=== PATIENT | female | born 1990 | race Caucasian/White ===

== ENCOUNTER 2016-04-02 06:34 | Emergency (ER) | payer MEDICAID ==
[2010-02-14 06:44] VITALS: BMI 29.7
[2016-04-02 07:16] LABS: BASOPHILS 0.3 % (0.0-2.0); EOSINOPHILS 1.3 % (0-7); HEMATOCRIT 41.4 % (36.0-48.0); HEMOGLOBIN 13.6 g/dL (12-16); IMMATURE GRANULOCYTES 0.3 % (0-5); LYMPHOCYTES 18.2 % (15-50); MCH 28.7 pg (26.0-34.0); MCHC 32.9 g/dL (31.0-37.0); MCV 87.3 fL (80.0-100.0); MEAN PLATELET VOLUME 10.6 fL (7.4-10.4); MONOCYTES 6.9 % (2-11); RBC 4.74 10x6/uL (4.00-5.40); RDW 13.3 % (11.5-14.5); WBC 11.1 10x3/uL (4.8-10.8)
[2016-04-02 07:27] LABS: PLATELET COUNT 267 10x3/uL (130-400)
[2016-04-02 07:28] LABS: HCG SERUM POSITIVE (NEGATIVE)
== END 2016-04-02 18:16 | disposition home or self-care (01) ==
LOC: D.ER 06:34
PROVIDERS: Family Medicine
DX: O20.9 Hemorrhage in early pregnancy, unspecified (principal); Z3A.01 Less than 8 weeks gestation of pregnancy; F17.200 Nicotine dependence, unspecified, uncomplicated

== ENCOUNTER 2016-04-23 10:49 | Emergency (ER) | payer MEDICAID ==
[2010-02-14 06:44] VITALS: BMI 29.7
[2016-04-23 12:14] LABS: BASOPHILS 0.2 % (0.0-2.0); EOSINOPHILS 0.7 % (0-7); HEMATOCRIT 36.3 % (36.0-48.0); IMMATURE GRANULOCYTES 0.3 % (0-5); LYMPHOCYTES 18.8 % (15-50); MCH 28.8 pg (26.0-34.0); MCHC 33.1 g/dL (31.0-37.0); MCV 87.1 fL (80.0-100.0); MEAN PLATELET VOLUME 10.5 fL (7.4-10.4); MONOCYTES 4.5 % (2-11); NEUTROPHILS 75.5 % (40-80); RBC 4.17 10x6/uL (4.00-5.40); WBC 11.5 10x3/uL (4.8-10.8)
[2016-04-23 12:27] LABS: PLATELET COUNT 191 10x3/uL (130-400)
[2016-04-23 12:44] LABS: ALBUMIN 3.7 g/dL (3.4-5.0); ALKALINE PHOSPHATASE 59 U/L (46-116); ALT (SGPT) 17 U/L (10-68); BILIRUBIN - TOTAL 0.19 mg/dL (0.2-1.3); CALC OSMOLALITY 275 mosm/kg (275-300); CALCIUM 8.9 mg/dL (8.5-10.1); CARBON DIOXIDE 26.2 mmol/L (21.0-32.0); CHLORIDE - SERUM 103 mmol/L (98-107); CREATININE - SERUM 0.5 mg/dL (0.6-1.3); GLUCOSE 90 mg/dL (74-106); POTASSIUM - SERUM 3.7 mmol/L (3.5-5.1); PROTEIN - SERUM 7.2 g/dL (6.4-8.2); SODIUM 139 mmol/L (136-145); UREA NITROGEN 7 mg/dL (7-18); eGFR NON AFRICAN AMERICAN > 90 mL/min (90-120)
[2016-04-23 12:45] LABS: HCG SERUM POSITIVE (NEGATIVE)
[2016-04-23 13:42] LABS: APPEARANCE HAZY (CLEAR); COLOR STRAW (YELLOW); GLUCOSE NEGATIVE (NEGATIVE); LEUKOCYTE ESTERASE 2+ (NEGATIVE); NITRITE NEGATIVE (NEGATIVE); PROTEIN NEGATIVE (NEGATIVE); SPECIFIC GRAVITY 1.005 (1.005-1.020)
[2016-04-23 13:43] LABS: BILIRUBIN NEGATIVE (NEGATIVE); KETONE NEGATIVE (NEGATIVE); UROBILINOGEN NORMAL (NORMAL)
[2016-04-23 13:44] LABS: AMORPHOUS SEDIMENT >1+ /lpf (NONE SEEN); BACTERIA FEW /hpf (NONE SEEN); EPITHELIAL CELLS 0-5 /hpf (0-5); RED CELLS - URINE 0-5 /hpf (0-5); WHITE CELLS - URINE 0-5 /hpf (0-5)
[2016-05-03 14:27] LABS: AEROBE ID Final report (())
== END 2016-04-23 16:09 | disposition home or self-care (01) ==
LOC: D.ER 10:49
PROVIDERS: Emergency Medicine Emergency Medical Services; Physician Assistant
DX: O26.891 Other specified pregnancy related conditions, first trimester (principal); Z3A.11 11 weeks gestation of pregnancy; R10.9 Unspecified abdominal pain; R30.0 Dysuria

== ENCOUNTER → 2016-09-25 10:24 | Outpatient (CLI) | payer MEDICAID ==
[2010-02-14 06:44] VITALS: BMI 29.7
== END | disposition home or self-care (01) ==
LOC: D.LDO 10:24
DX: O36.5930 Maternal care for other known or suspected poor fetal growth, third trimester, not applicable or unspecified (principal); Z3A.33 33 weeks gestation of pregnancy

== ENCOUNTER → 2016-09-28 09:16 | Outpatient (CLI) | payer MEDICAID ==
[2010-02-14 06:44] VITALS: BMI 29.7
== END | disposition home or self-care (01) ==
LOC: D.LDO 09:16
DX: O36.5930 Maternal care for other known or suspected poor fetal growth, third trimester, not applicable or unspecified (principal); Z3A.33 33 weeks gestation of pregnancy

== ENCOUNTER 2016-09-29 21:39 | Emergency (ER) | payer MEDICAID ==
[2010-02-14 06:44] VITALS: BMI 29.7
[2016-09-29 22:21] LABS: APPEARANCE CLEAR (CLEAR); BILIRUBIN NEGATIVE (NEGATIVE); COLOR YELLOW (YELLOW); GLUCOSE NEGATIVE (NEGATIVE); KETONE NEGATIVE (NEGATIVE); LEUKOCYTE ESTERASE 2+ (NEGATIVE); NITRITE NEGATIVE (NEGATIVE); PROTEIN NEGATIVE (NEGATIVE); UROBILINOGEN NORMAL (NORMAL)
[2016-09-29 22:28] LABS: BACTERIA FEW /hpf (NONE SEEN); EPITHELIAL CELLS 0-5 /hpf (0-5); RED CELLS - URINE OCC /hpf (0-5)
== END 2016-09-29 23:26 | disposition home or self-care (01) ==
LOC: D.ER 21:39
PROVIDERS: Emergency Medicine
DX: N39.0 Urinary tract infection, site not specified (principal)

== ENCOUNTER → 2016-10-01 10:32 | Outpatient (CLI) | payer MEDICAID ==
[2010-02-14 06:44] VITALS: BMI 29.7
== END | disposition home or self-care (01) ==
LOC: D.LDO 10:32
DX: O36.5930 Maternal care for other known or suspected poor fetal growth, third trimester, not applicable or unspecified (principal); Z3A.34 34 weeks gestation of pregnancy

== ENCOUNTER → 2016-10-08 10:00 | Outpatient (CLI) | payer MEDICAID ==
[2010-02-14 06:44] VITALS: BMI 29.7
== END | disposition home or self-care (01) ==
LOC: D.LDO 10:00
DX: O36.5930 Maternal care for other known or suspected poor fetal growth, third trimester, not applicable or unspecified (principal); Z3A.35 35 weeks gestation of pregnancy

== ENCOUNTER → 2016-10-18 09:20 | Outpatient (CLI) | payer MEDICAID ==
[2010-02-14 06:44] VITALS: BMI 29.7
== END | disposition home or self-care (01) ==
LOC: D.LDO 09:20
DX: O36.5930 Maternal care for other known or suspected poor fetal growth, third trimester, not applicable or unspecified (principal); Z3A.36 36 weeks gestation of pregnancy

== ENCOUNTER → 2016-10-23 08:50 | Outpatient (CLI) | payer MEDICAID ==
[2010-02-14 06:44] VITALS: BMI 29.7
== END | disposition home or self-care (01) ==
LOC: D.LDO 08:50
DX: O36.5930 Maternal care for other known or suspected poor fetal growth, third trimester, not applicable or unspecified (principal)

== ENCOUNTER → 2016-10-30 13:37 | Outpatient (CLI) | payer MEDICAID ==
[2010-02-14 06:44] VITALS: BMI 29.7
== END | disposition home or self-care (01) ==
LOC: D.LDO 13:37
DX: O36.5930 Maternal care for other known or suspected poor fetal growth, third trimester, not applicable or unspecified (principal); Z3A.38 38 weeks gestation of pregnancy

== ENCOUNTER 2016-11-05 05:00 | Inpatient (IN) | payer MEDICAID ==
[~2016-11-05] VITALS: Ht 162.6 cm; Wt 71.7 kg
[2016-11-05 05:47] VITALS: BP 120/74; Ht 162.6 cm; Wt 71.7 kg
[2016-11-05 06:06] LABS: HEMATOCRIT 33.1 % (36.0-48.0); HEMOGLOBIN 10.8 g/dL (12-16); MCH 28.3 pg (26.0-34.0); MCHC 32.6 g/dL (31.0-37.0); MCV 86.9 fL (80.0-100.0); MEAN PLATELET VOLUME 11.5 fL (7.4-10.4); RBC 3.81 10x6/uL (4.00-5.40); RDW 13.6 % (11.5-14.5); WBC 8.7 10x3/uL (4.8-10.8)
[2016-11-05 08:27] LABS: UDS - AMPHET NEGATIVE QUAL (NEGATIVE); UDS - BARB NEGATIVE QUAL (NEGATIVE); UDS - BENZO NEGATIVE QUAL (NEGATIVE); UDS - COCAINE NEGATIVE QUAL (NEGATIVE); UDS - METH NEGATIVE QUAL (NEGATIVE); UDS - OPIATE NEGATIVE QUAL (NEGATIVE); UDS - PCP NEGATIVE QUAL (NEGATIVE); UDS - THC NEGATIVE QUAL (NEGATIVE)
[2016-11-05 08:32] LABS: APPEARANCE CLOUDY (CLEAR); BACTERIA MODERATE /hpf (NONE SEEN); BILIRUBIN NEGATIVE (NEGATIVE); COLOR STRAW (YELLOW); EPITHELIAL CELLS 0-5 /hpf (0-5); GLUCOSE NEGATIVE (NEGATIVE); KETONE NEGATIVE (NEGATIVE); LEUKOCYTE ESTERASE 2+ (NEGATIVE); NITRITE NEGATIVE (NEGATIVE); PROTEIN NEGATIVE (NEGATIVE); RED CELLS - URINE 0-5 /hpf (0-5); UROBILINOGEN NORMAL (NORMAL); WHITE CELLS - URINE 25-50 /hpf (0-5)
[2016-11-05 08:33] LABS: MUCUS <1+ /lpf (NONE SEEN)
[2016-11-05 19:20] VITALS: BP 114/71
--- NOTE | 2016-11-05 19:24 | NUR ---
RN TO PT BS FOR JAXSON. PT RESTING IN BED IN SEMI-FOWLERS POSITION, HOLDING INFANT, IN NO ACUTE DISTRESS. PT IS A 26YO G3 NOW P3 WITH OF VIABLE FEMALE INFANT TODAY @ 1121. @ 39.3 WKS GESTATION WITH SUSPECTED IUGR. DELIVERY COMPLICATED BY SUPERFICIAL LACERATION AND NO REPAIR. AAOX3. HR REGULAR. LUNGS CTAB. ABDOMEN SOFT AND NON TENDER. BS ACTIVE TIMES 4. FUNDUS FIRM AND ML @ U. LOCHIA RUBRA SMALL. PERINIUM APPEARS TO BE INTACT. ALEKSEY PAD AND PANTIES IN PLACE. PT DENIES DIFFICULTY VOIDING. STATES SHE HAS PASSED GAS BUT HAS NOT HAD A BM SINCE . PT TOLERATING REGULAR DIET. NO SWELLING NOTED TO UPPER OR LOWER EXTREMITIES BILATERALLY. 18G SL IN PLACE TO RIGHT FA, FLUSHED WITH 5CC NS WITHOUT DIFFICULTY. NO REDNESS, EDEMA, OR DRAINAGE NOTED TO SITE. PT C/O PAIN, RATES 7/10, REQUESTS MEDICATION. 1 TAB IBUPROFEN AND 1 TAB DEMEROL 50MG PO PROVIDED AT THIS TIME. PT DENIES ANY FURTHER NEEDS AT THIS TIME. POC DISCUSSED WITH PT AND SO. QUESTIONS ANSWERED. INFANT REMAINS AT PT BS FOR COUPLET CARE. SO REMAINS AT PT BS FOR SUPPORT AND ASSISTANCE. WILL CONT TO MONITOR PT STATUS.
--- NOTE | 2016-11-05 20:13 | NUR ---
RN TO PT BS FOR ROUNDS. PT AMBULATING IN ROOM TO BR AT THIS TIME TO SHOWER. PT STATES HER PAIN HAS DECREASED TO 2/10 AFTER MEDICATION. PT DENIES ANY NEEDS AT THIS TIME. BED IN LOW POSITION, SIDE RAILS UP TIMES 2, CALL LIGHT AND PHONE IN REACH. SO REMAINS AT PT BS FOR SUPPORT AND ASSISTANCE. REMAINS AT PT BS FOR COUPLET CARE. WILL CONT TO MONITOR PT STATUS.
--- NOTE | 2016-11-05 20:54 | NUR ---
RN TO PT BS TO PROVIDE 2100 DOSE OF MOM. PT SITTING ON SIDE OF BED IN NO ACUTE DISTRESS. MOM PROVIDED. PT DENIES ANY FURTHER NEEDS. BED IN LOW POSITION, SIDE RAILS UP TIMES 2, CALL LIGHT AND PHONE IN REACH. SO REMAINS AT PT BS FOR SUPPORT AND ASSISTANCE. REMAINS AT PT BS FOR COUPLET CARE. WILL CONT TO MONITOR STATUS.
--- NOTE | 2016-11-05 22:31 | NUR ---
RN TO PT BS FOR ROUNDS. PT RESTING IN BED IN SEMI-FOWLERS POSITION IN NO ACUTE DISTRESS. PT DENIES ANY NEEDS AT THIS TIME. BED IN LOW POSITION, SIDE RAILS UP TIMES 2, CALL LIGHT AND PHONE IN REACH. SO REMAINS AT PT BS FOR SUPPORT AND ASSISTANCE. REMAINS AT PT BS FOR COUPLET CARE. WILL CONT TO MONITOR PT STATUS.
--- NOTE | 2016-11-05 23:34 | NUR ---
RN TO PT BS FOR ROUNDS. PT RESTING IN BED IN SEMI-FOWLERS POSITION INFANT. PT DENIES ANY NEEDS AT THIS TIME. BED IN LOW POSITION, SIDE RAILS UP TIMES 2, CALL LIGHT AND PHONE IN REACH. INFANT REMAINS AT PT BS FOR SUPPORT AND ASSISTANCE. REMAINS AT PT BS FOR COUPLET CARE. WILL CONT TO MONITOR PT STATUS.
--- NOTE | 2016-11-06 00:30 | NUR ---
RN CALLED TO PT BS. PT C/O PAIN, RATES 10/11, REQUESTS MEDICATION. DEMEROL 100MG PROVIDED PO AT THIS TIME. PT DENIES ANY FURTHER NEEDS AT THIS TIME. SO REMAINS AT PT BS FOR SUPPORT AND ASSISTANCE. INFANT TRANSPORTED TO NURSERY VIA OPEN CRIB PER PT REQUEST TO SLEEP. BED IN LOW POSITION, SIDE RAILS UP TIMES 2, CALL LIGHT AND PHONE IN REACH. WILL CONT TO MONITOR PT STATUS.
--- NOTE | 2016-11-06 02:20 | NUR ---
RN TO PT BS FOR ROUNDS. PT RESTING IN BED IN SEMI-FOWLERS POSITION, WITH EYES CLOSED, IN NO ACUTE DISTRESS. RESPIRATIONS EVEN AND UNLABORED. BED IN LOW POSITION, SIDE RAILS UP TIMES 2, CALL LIGHT AND PHONE IN REACH. SO REMAINS AT PT BS FOR SUPPORT AND ASSISTANCE. WILL CONT TO MONITOR PT STATUS.
--- NOTE | 2016-11-06 03:27 | NUR ---
RN TO PT BS FOR ROUNDS. PT RESTING IN BED IN RIGHT LATERAL POSITION, WITH EYES CLOSED, IN NO ACUTE DISTRESS. RESPIRATIONS EVEN AND UNLABORED. BED IN LOW POSITION, SIDE RAILS UP TIMES 2, CALL LIGHT AND PHONE IN REACH. SO REMAINS AT PT BS FOR SUPPORT AND ASSISTANCE. WILL CONT TO MONITOR PT STATUS.
[2016-11-06 05:29] LABS: HEMATOCRIT 29.6 % (36.0-48.0); HEMOGLOBIN 9.7 g/dL (12-16); MCH 28.9 pg (26.0-34.0); MCHC 32.8 g/dL (31.0-37.0); MCV 88.1 fL (80.0-100.0); MEAN PLATELET VOLUME 11.3 fL (7.4-10.4); RBC 3.36 10x6/uL (4.00-5.40); RDW 13.5 % (11.5-14.5); WBC 7.7 10x3/uL (4.8-10.8)
--- NOTE | 2016-11-06 05:47 | NUR ---
RN TO PT BS FOR ROUNDS. PT RESTING IN BED IN SEMI-FOWLERS POSITION, WITH EYES CLOSED, IN NO ACUTE DISTRESS. RESPIRATIONS EVEN AND UNLABORED. SO REMAINS AT PT BS FOR SUPPORT AND ASSISTANCE. BED IN LOW POSITION, SIDE RAILS UP TIMES 2, CALL LIGHT AND PHONE IN REACH. WILL CONT TO MONITOR PT STATUS.
--- NOTE | 2016-11-06 08:27 | NUR ---
Diana Montiel 11/[birth year]/16 S: Client states, "She breastfed her other kids for one month, by pumping the milk and giving a bottle. States baby just doesn't latch, just for a minute." O: Patient sitting up in bed talking with FOB who is sitting on sofa. Congratulated on delivery, asked patient how does she feel about . Patient states, "Its ok, I want to pump and give the baby the milk in a bottle, I rather not latch, I'm uncomfortable with latching". Thanked patient for being honest about how she feels about . You don't have to latch baby if you prefer not to, and we respect your decision on how you would like to feed your baby. does require stimulation to help with your body to start establishing your supply for infant. Explained breastmilk composition and how to hand express. Supply and demand what is taken out, your body will make more of. Recommend any amount she gets with hand expression to give to . Patient verbally agrees and says, "That's a good idea. "Observed patient constantly pulling blanket up over her breast, like she is uncomfortable, and rubbing her arms. Asked if she would like help with pump? Patient states, "She will try when she gets home, she is going to try and get a pump, does get [place], it's been 4 years, but she thinks they give out pumps". Offered to make patient a [place] appointment, patient states," She lives in [facility] and will call at a later time to do so. Asked if patient had any questions or concerns, all declined. Will follow up. A: Patient states she prefers to pump when she gets home, not comfortable with latching . P: Continue to promote . Wade Lopez, CLC
[2016-11-06 08:30] VITALS: BP 97/62
--- NOTE | 2016-11-06 08:30 | NUR ---
AM assessment completed as charted on flowsheet, VSS. Pain med given per request for pain/cramping in abd. Saline lock to right forearm removed with cath intact. Fundus firm at u/u, per pt no clots with voids and bleeding is very little. Margaret pads and mesh panties placed in bathroom along with towels for her to shower. Pt states understanding to call nurse when she gets into shower so that bed linens can be changed. spouse at bedside, side rails up x 2 with call light in reach.
--- NOTE | 2016-11-06 10:45 | NUR ---
Pt sitting on couch with in crib at her side. Denies pain or discomfort and has no needs at this time.
--- NOTE | 2016-11-06 12:48 | NUR ---
Pt sitting up eating regular diet, in crib at bedside. Denies pain or discomfort at this time and voices no needs.
--- NOTE | 2016-11-06 14:30 | NUR ---
Pt calls out to let nurses know that she is getting into the shower, this rn to room with bed linens changed. Sig other in room with in crib.
--- NOTE | 2016-11-06 16:08 | NUR ---
Pain med given per request as charted on emar. pt amb to nursery than walks in halls with spouse.
--- NOTE | 2016-11-06 17:30 | NUR ---
Denies pain or discomfort and has no needs at this time.
--- NOTE | 2016-11-06 19:12 | NUR ---
report to 7p-7p
--- NOTE | 2016-11-06 19:34 | NUR ---
RN TO PT BS FOR ROUNDS. PT AMBULATING IN SANCHEZ IN NO ACUTE DISTRESS. PT DENIES ANY NEEDS AT THIS TIME. WILL RETURN FOR JAXSON. SO WITH PT AT THIS TIME FOR SUPPORT AND ASSISTANCE. WILL CONT TO MONITOR PT STATUS.
[2016-11-06 20:30] VITALS: BP 106/73
--- NOTE | 2016-11-06 20:30 | NUR ---
RN TO PT BS FOR JAXSON. PT AMBULATING IN ROOM, IN NO ACUTE DISTRESS. PT RETURNS TO BED FOR JAXSON. PT IS A 26YO G3 NOW P3 WITH OF VIABLE FEMALE INFANT YESTERDAY @ 1121. @ 39.3 WKS GESTATION WITH SUSPECTED IUGR. DELIVERY COMPLICATED BY SUPERFICIAL LACERATION AND NO REPAIR. AAOX3. HR REGULAR. LUNGS CTAB. ABDOMEN SOFT AND NON TENDER. BS ACTIVE TIMES 4. FUNDUS NOT PALPATED. LOCHIA RUBRA SCANT. PERINIUM APPEARS TO BE INTACT. ALEKSEY PAD AND PANTIES IN PLACE. PT DENIES DIFFICULTY VOIDING. STATES SHE IS PASSING GAS AND HAS HAD A BM SINCE . PT TOLERATING REGULAR DIET. NO SWELLING NOTED TO UPPER OR LOWER EXTREMITIES BILATERALLY. NO IV ACCESS. PT C/O PAIN, RATES 4/10. DENIES THE NEED FOR MEDICATION AT THIS TIME. PT DENIES ANY FURTHER NEEDS AT THIS TIME. BED IN LOW POSITION, SIDE RAILS UP TIMES 2, CALL LIGHT AND PHONE IN REACH. SO REMAINS AT PT BS FOR SUPPORT AND ASSISTANCE. REMAINS AT PT BS FOR COUPLET CARE. WILL CONT TO MONITOR PT STATUS.
--- NOTE | 2016-11-06 22:27 | NUR ---
RN TO PT BS FOR ROUNDS. PT RESTING IN BED IN SEMI-FOWLERS POSITION, HOLDING , IN NO ACUTE DISTRESS. PT C/O PAIN, RATES 8/10, REQUESTS MEDICATION. 1 TAB IBUPROFEN AND 100MG DEMEROL PROVIDED AT THIS TIME. PT DENIES ANY FURTHER NEEDS. BED IN LOW POSITION, SIDE RAILS UP TIMES 2, CALL LIGHT AND PHONE IN REACH. SO REMAINS AT PT BS FOR SUPPORT AND ASSISTANCE. INFANT REMAINS AT PT BS FOR COUPLET CARE. WILL CONT TO MONITOR PT STATUS.
--- NOTE | 2016-11-07 00:19 | NUR ---
RN TO PT BS FOR ROUNDS. PT RESTING IN BED IN SEMI-FOWLERS POSITION, IN NO ACUTE DISTRESS. PT DENIES ANY NEEDS AT THIS TIME. BED IN LOW POSITION, SIDE RAILS UP TIMES 2, CALL LIGHT AND PHONE IN REACH. SO REMAINS AT PT BS FOR SUPPORT AND ASSISTANCE. WILL CONT TO MONITOR PT STATUS.
--- NOTE | 2016-11-07 04:25 | NUR ---
RN TO PT BS FOR ROUNDS. PT RESTING IN BED IN RIGHT LATERAL POSITION, WITH EYES CLOSED, IN NO ACUTE DISTRESS. RESPIRATIONS EVEN AND UNLABORED. SO REMAINS AT PT BS FOR SUPPORT AND ASSISTANCE. BED IN LOW POSITION, SIDE RAILS UP TIMES 2, CALL LIGHT AND PHONE IN REACH. WILL CONT TO MONITOR PT STATUS.
[2016-11-07 06:14] LABS: RAPID PLASMA REAGIN Non Reactive (Non Reactive)
[2016-11-07 07:20] VITALS: BP 98/65
--- NOTE | 2016-11-07 07:20 | NUR ---
RECEIVED PT SITTING UP IN BED. AAO X 3. VSS. HRRR WITHOUT AUDIBLE MURMUR. BBS CLEAR. BS X 4. ABDOMEN SOFT/NON-DISTENDED. PT STATES PASSING GAS AND HAD BM YESTERDAY. FUNDUS FIRM AT U/U. RUBRA LOCHIA SMALL AMT. NO CLOTS OR HEAVY BLEEDING PER PT STATES. PERINEUM WITHOUT EDEMA. NEG HOMANS' SIGN. PPP. NO EDEMA NOTED TO BLE. PT STATES PAIN OF "4" ON 0-10 PAIN SCALE. DENIES NEED FOR PAIN MED AT THIS TIME. SR UP X 2. CALL LIGHT IN REACH.
--- NOTE | 2016-11-07 08:26 | NUR ---
DR MICHAELS VISITS WITH PT.
--- NOTE | 2016-11-07 09:30 | NUR ---
PT SITTING UP ON COUCH. HOLDS INFANT WITH MUCH WARMTH SHOWN. DENIES C/O. DECLINES TDAP.
--- NOTE | 2016-11-07 10:04 | NUR ---
DR MICHAELS NOTIFIED OF NO ORDER FOR DISCHARGE. NEW ORDERS RECEIVED.
[2016-11-07] MEDS ORDERED: IBUPROFEN600 MG PO (10:13)
--- NOTE | 2016-11-07 11:30 | NUR ---
PT SITTING UP ON COUCH. HOLDS INFANT AND VISITS WITH SO. DENIES NEEDS OR C/O.
--- NOTE | 2016-11-07 12:40 | NUR ---
PT PREPARING FOR DISCHARGE.
--- NOTE | 2016-11-07 12:52 | NUR ---
DEMEROL 50 MG GIVEN PO ORDERED FOR C/O ABDOMINAL CRAMPING OF "6" ON 0-10 PAIN SCALE.
--- NOTE | 2016-11-07 13:00 | NUR ---
PT GIVEN DISCHARGE INSTRUCTIONS. VERBALIZES UNDERSTANDING OF INSTRUCTIONS. COPIES GIVEN TO PT. RX FOR IBUPROFEN GIVEN TO PT. PT PREPARES FOR DISCHARGE.
--- NOTE | 2016-11-07 13:30 | NUR ---
PT READY FOR DISCHARGE. DISCHARGED WITH VIA WHEELCHAIR PER AUXILIARY STAFF TO PRIVATE VEHICLE.
== END 2016-11-07 13:30 | disposition home or self-care (01) | DRG 774 ==
LOC: D.LD 05:00
PROVIDERS: ADMIT Obstetrics & Gynecology
PROC: 10E0XZZ Delivery of Products of Conception, External Approach (ICD-10-PCS; principal; 2016-11-05)
PROC: 0HQ9XZZ Repair Perineum Skin, External Approach (ICD-10-PCS; principal; 2016-11-05)
DX: O99.824 Streptococcus B carrier state complicating childbirth (principal); O45.93 Premature separation of placenta, unspecified, third trimester; O70.0 First degree perineal laceration during delivery; Z3A.39 39 weeks gestation of pregnancy; Z37.0 Single live birth

== ENCOUNTER 2019-05-09 18:43 | Inpatient (IN) | payer MEDICAID ==
[~2019-05-09] VITALS: Ht 162.6 cm; Wt 81.6 kg
[~2019-05-09 18:43] MED LIST: IBUPROFEN600 MG PO
[2019-05-09 20:04] LABS: HEMATOCRIT 31.5 % (36.0-48.0); HEMOGLOBIN 10.2 g/dL (12-16); MCHC 32.4 g/dL (31.0-37.0); MCV 83.3 fL (80.0-100.0); MEAN PLATELET VOLUME 12.7 fL (7.4-10.4); RBC 3.78 10x6/uL (4.00-5.40); WBC 8.9 10x3/uL (4.8-10.8)
[2019-05-09 20:08] LABS: BILIRUBIN NEGATIVE (NEGATIVE); GLUCOSE NEGATIVE (NEGATIVE); KETONE NEGATIVE (NEGATIVE); NITRITE NEGATIVE (NEGATIVE); SPECIFIC GRAVITY 1.005 (1.005-1.020); UROBILINOGEN NORMAL (NORMAL)
[2019-05-09 20:22] LABS: UDS - AMPHET POSITIVE QUAL (NEGATIVE); UDS - BARB NEGATIVE QUAL (NEGATIVE); UDS - BENZO NEGATIVE QUAL (NEGATIVE); UDS - COCAINE NEGATIVE QUAL (NEGATIVE); UDS - OPIATE NEGATIVE QUAL (NEGATIVE); UDS - PCP NEGATIVE QUAL (NEGATIVE); UDS - THC NEGATIVE QUAL (NEGATIVE)
[2019-05-09] MEDS ORDERED: PRENAVITE1 TAB PO (21:30)
[2019-05-09 21:31] VITALS: BP 104/60; Ht 162.6 cm; Wt 81.6 kg
[2019-05-09] MEDS ORDERED: FLAGYL500 MG PO (21:52)
[2019-05-10] VITALS (14 sets, daily range): BP systolic 106–131; BP diastolic 59–81
[2019-05-10 06:36] LABS: BASOPHILS 0.2 % (0-2); EOSINOPHILS 0.4 % (0-7); HEMATOCRIT 27.9 % (36.0-48.0); HEMOGLOBIN 8.8 g/dL (12-16); IMMATURE GRANULOCYTES 0.2 % (0-5); MCH 26.6 pg (26.0-34.0); MCHC 31.5 g/dL (31.0-37.0); MCV 84.3 fL (80.0-100.0); MEAN PLATELET VOLUME 12.1 fL (7.4-10.4); MONOCYTES 6.6 % (2-11); NEUTROPHILS 73.6 % (40-80); PLATELET COUNT 183 10x3/uL (130-400); RBC 3.31 10x6/uL (4.00-5.40); RDW 14.1 % (11.5-14.5); WBC 9.1 10x3/uL (4.8-10.8)
--- NOTE | 2019-05-10 07:30 | NUR ---
SHIFT ASSESSMENT COMPLETED. DENIES PAIN OR NEEDING ANYTHING. READY FOR BREAKFAST. SNACKBOX AND FRESH WATER GIVEN. INSTRUCTED TO GET OOB FREQUENTLY AND TO LET RN KNOW WHEN READY TO SHOWER THIS AM. DISCUSSED POLICY TO REMAIN ON CABRAL DURING ADMISSION. DECLINED NICODERM PATCH. IN NURSERY. VISITOR SLEEPING ON COUCH. SIDERAILS UP X 2, CALL GERI DIAZ.
--- NOTE | 2019-05-10 09:08 | NUR ---
SCHEDULED TYLENOL GIVEN SOME CRAMPING AND LOW BACK PAIN. HAS BEEN UP TO VOID. VOIDED 300 ML YELLOW URINE WITH SCANT LOCHIA NOTED IN [place] HAT. VISITOR IN ROOM. NO REQUESTS AT PRESENT. SIDE RAILS UP X 2, CALL LIGHT IN REACH. TO CALL IF ANYTHING IS NEEDED.
--- NOTE | 2019-05-10 09:40 | NUR ---
SITTING UP IN BED HOLDING . ORDERED FLAGYL GIVEN. TEARFUL AFTER TALKING TO SOMEONE ON PHONE. APPLE JUICE, ICE AND FRESH WATER GIVEN PER PT REQUEST. DENIES NEEDING ANYTHING ELSE. VISITOR X 1 IN ROOM. SIDERAILS UP X 2, CALL LIGHT IN REACH.
--- NOTE | 2019-05-10 10:28 | NUR ---
CALLED TO ROOM BY PT'S MOTHER. PT C/O BLEEDING. BLOOD NOTED ON CHUX, BEDPAD AND SHEETS, UTERINE MASSAGED AND LARGE BLOOT CLOTS X 2 EXPRESSED FROM VAGINA, NOTED CONTINUED BLEEDING WITH CLOT NOTED AT INTROITUS, FUNDAL MASSAGE GIVEN AND CALLED FOR HELP FROM SECOND RN.
--- NOTE | 2019-05-10 10:30 | NUR ---
SECOND RN IN ROOM ASSISTING WITH PATIENT, BIMANUAL EXAM OF VAGINAL DONE USING STERILE GLOVE WITH EVACUATION OF LARGE CLOTS, UTERUS REMAINED U/2 FIRM DURING EXAM. CLEAN CHUX, PADS, GOWN AND LINENS TO BED. CONTINUED TO WATCH FOR BLEEDING.
--- NOTE | 2019-05-10 10:36 | NUR ---
THIS RN ON PHONE WITH DR CUETO AT PT BEDSIDE, REPORT GIVEN ON HEAVY LOCHIA AND CLOTS EXPRESSED WITH FUNDAL MASSAGE BY JONG CHRISTENSEN. ORDER RECEIVED TO ADMIN 0.2MG METHERGINE IM NOW, 1G TXA IVPB NOW, AND START PT ON 200MCG CYTOTEC PO Q8H.
--- NOTE | 2019-05-10 10:36 | NUR ---
BLEEDING CONTINUED WITH EXPRESSION OF CLOTS, Jeanette RODRIGUEZ RN CONTACTED DR CUETO WHILE IN ROOM. ORDERS WERE RECEIVED FOR METHERGINE.
--- NOTE | 2019-05-10 10:43 | NUR ---
METHERGINE GIVEN IM BY Jeanette RODRIGUEZ RN.
--- NOTE | 2019-05-10 10:43 | NUR ---
METHERGINE ADMIN ORDERED TO LEFT VASTUS LATERALIS, SEE EMAR FOR DOC.
--- NOTE | 2019-05-10 10:47 | NUR ---
TXA 1000 MG HUNG ON ALARIS PUMP TO RUN OVER 30 MINS. CLEAN PADS AND CHUX PLACED. CONTINUED TO WATCH BLEEDING.
--- NOTE | 2019-05-10 10:56 | NUR ---
CYTOTECH 200 MG GIVEN PO. D. MICHAEL ON PHONE WITH MD NOTIFYING ON CONTINUED BLEEDING WITH CLOTS.
--- NOTE | 2019-05-10 10:56 | NUR ---
DR CUETO GIVEN UPDATED REPORT ON BLEEDING AND REQUESTS HE COME EVALUATE PT. ORDER RECEIVED TO ADMIN 250MCG HEMABATE IM x1 NOW AND HE IS ON HIS WAY.
--- NOTE | 2019-05-10 11:02 | NUR ---
HEMABATE ADMIN ORDERED BY DR CUETO TO RIGHT VASTUS LATERALIS. PT EDUCATED ON SIDE EFFECTS.
--- NOTE | 2019-05-10 11:10 | NUR ---
HEMABATE GIVEN IM BY Jeanette RODRIGUEZ RN AT 1102 AFTER RECEIVING ORDERS FROM . LAB WAS NOTIFIED OF NEED FOR TYPE AND CROSS. NS HUNG AND STARTED AT 999 ML/HR PER ALARIS PUMP.
--- NOTE | 2019-05-10 11:14 | NUR ---
DR CUETO PHONED TO GIVE REPORT ON ANOTHER LARGE AMOUNT OF CLOTS EXPRESSED WITH FUNDAL MASSAGE BY AMPARO, RN. ORDER RECEIVED TO PREOP PT FOR DILATION AND CURETTAGE, AND NOTIFY INFANT ROOM TEACHER TO CALL O.R. CREW IN FOR STAT CASE.
--- NOTE | 2019-05-10 11:15 | NUR ---
CONSENT FOR D&C OBTAINED FROM PATIENT.
--- NOTE | 2019-05-10 11:15 | NUR ---
[employer] NOTIFIED OF NEED FOR O.R. CREW CALLED IN FOR STAT D AND C PER DR CUETO, STATES HE IS IN ROUTE AND WILL BE IN HOSPITAL WITHIN 1 MIN.
--- NOTE | 2019-05-10 11:20 | NUR ---
LABS DRAWN ORDERED FROM LEFT FOREARM, LAB NOTIFIED OF STAT PICKUP.
--- NOTE | 2019-05-10 11:35 | NUR ---
DEMEROL 25 MG/PHENERGAN 25 MG GIVEN SLOW IVP. BICITRA AND LOMOTIL ALSO GIVEN AT THIS TIME. CHANGED PADS, CHUX, GOWN, LARGE CLOT ON PAD NOTED, NO CURRENT ACTIVE BLEEDING, U/2 FIRM. ALL MATERIAL KEPT FOR WEIGHING/QUANTIFICATION.
--- NOTE | 2019-05-10 11:40 | NUR ---
18G PIV INITIATED TO LEFT FOREARM x2 ATTEMPTS BY THIS RN. SALINE LOCKED FOR O.R.
[2019-05-10 11:45] LABS: HEMATOCRIT 26.8 % (36.0-48.0); HEMOGLOBIN 8.4 g/dL (12-16); MCH 26.3 pg (26.0-34.0); MCHC 31.3 g/dL (31.0-37.0); MEAN PLATELET VOLUME 12.3 fL (7.4-10.4); PLATELET COUNT 201 10x3/uL (130-400); RBC 3.19 10x6/uL (4.00-5.40); RDW 14.1 % (11.5-14.5); WBC 8.7 10x3/uL (4.8-10.8)
--- NOTE | 2019-05-10 11:53 | NUR ---
TO OR VIA BED WITH OR STAFF.
--- NOTE | 2019-05-10 11:53 | NUR ---
VIELKA CHAND CRNA IN ROOM TALKING TO PATIENT PRIOR TO TRANSFER TO OR. NOTIFIED OF MEDICATIONS THAT HAD BEEN ADMINISTERED. INFORMED THAT IM DEMEROL WAS ORDERED BUT HAD NOT BEEN GIVEN YET. ORDERS RECEIVED TO HOLD PT WAS GOING TO OR AT THIS TIME.
[2019-05-10 12:13] LABS: APTT 25.7 SECONDS (22.8-39.4); INR 0.91 (0.85-1.17); PROTIME 12.2 SECONDS (11.6-15.0)
--- NOTE | 2019-05-10 12:30 | NUR ---
EBL BY WEIGHT 1225 CC.
[2019-05-10 12:35] LABS: EOSINOPHILS 2 % (0-7); LYMPHOCYTES 23 % (15-50); MONOCYTES 6 % (2-11); NEUTROPHILS 68 % (40-80); PLATELET ESTIMATE NORMAL
--- NOTE | 2019-05-10 12:43 | NUR ---
Jeanette TINAJERO RN ON PHONE WITH DR CUETO, GIVING LAB RESULTS ON COAGS.
--- NOTE | 2019-05-10 12:51 | NUR ---
DR CUETO ON UNIT, LAB ORDERS RECEIVED.
[2019-05-10 13:03] LABS: CALC OSMOLALITY 265 mosm/kg (275-300); CALCIUM 8.2 mg/dL (8.5-10.1); CARBON DIOXIDE 24.1 mmol/L (21.0-32.0); CHLORIDE - SERUM 103 mmol/L (98-107); CREATININE - SERUM 0.6 mg/dL (0.6-1.3); GLUCOSE 101 mg/dL (74-106); POTASSIUM - SERUM 3.8 mmol/L (3.5-5.1); SODIUM 134 mmol/L (136-145); UREA NITROGEN 8 mg/dL (7-18); eGFR NON AFRICAN AMERICAN > 90 mL/min (90-120)
[2019-05-10 13:09] LABS: ALBUMIN 1.9 g/dL (3.4-5.0); ALKALINE PHOSPHATASE 200 U/L (30-120); ALT (SGPT) 16 U/L (10-68); BILIRUBIN - DIRECT 0.09 mg/dL (0.00-0.30); BILIRUBIN - INDIRECT 0.11 mg/dL (0.00-1.00); PROTEIN - SERUM 5.4 g/dL (6.4-8.2); URIC ACID 3.4 mg/dL (2.6-7.2)
--- NOTE | 2019-05-10 13:19 | NUR ---
RECEIVED FROM OR VIA BED WITH FORGING PRESS LEVER TENDER IN ATTENDANCE. DROWSY BUT WAKES UP WHEN NAME IS CALLED. VS OBTAINED. NS AND TXA 1 GRAM IVPB PLACED ON ALARIS PUMP AT 12.5 ML/HR. INFUSING WITHOUT SIGNS OF INFILTRATION IN RIGHT WRIST. SCD'S IN PLACE BILATERALL AND PUMP WORKING CORRECTLY. CASILLAS DRAINING CLEAR URINE WITH 900 ML IN BAG. SALINE LOCK NOTED IN LEFT FA. ALEKSEY-PADS X 2 PLACED, NO VAGINAL BLEEDING NOTED. SIDE RAILS UP X 2, CALL LIGHT IN REACH. PT MOTHER AT BEDSIDE. INFANT IN NURSERY. CALL LIGHT IN REACH. DR CUETO TALKED TO PT MOTHER PRIOR TO PT RETURNING TO ROOM FROM OR.
--- NOTE | 2019-05-10 13:30 | NUR ---
TALKED TO DR CUETO ON PHONE. RESULTS OF D-DIMER GIVEN. ORDERS RECEIVED FOR FIBRIN SPLIT PRODUCTS AND FIBRINOGEN. NOTIFIED THAT PT WITHOUT CURRENT VAGINAL BLEEDING.
--- NOTE | 2019-05-10 13:40 | NUR ---
SLEEPING, AROUSED EASILY FOR BLEEDING CHECK. NO BLOOD NOTED ON ALEKSEY-PAD. CASILLAS DRAINING CLEAR YELLOW URINE. VISITOR AND INFANT IN ROOM. SIDERAILS UP X 2, CALL LIGHT IN REACH, PT TO REMAIN NPO EXCEPTS SIPS OF WATER FOR MEDS NEEDED. BED IN LOW POSITION.
--- NOTE | 2019-05-10 14:15 | NUR ---
SLEEPING, AROUSED EASILY FOR BLEEDING CHECK. SMALL AMOUNT OF BLOOD NOTED BACK OF ALESKEY-PAD, WEIGHT = 26 ML BLOOD. VISITOR AND INFANT REMAIN IN ROOM. CASILLAS DRAINING WITHOUT DIFFICULTY. ASSISTED TO REPOSITION TO LEFT SIDE. CLEAN ALEKSEY-PAD PLACED. CALL LIGHT IN REACH.
--- NOTE | 2019-05-10 15:09 | NUR ---
DR CUETO CALLED CABRAL, NOTIFIED THAT ONE ALEKSEY-PAD. NO NEW ORDERS AT PRESENT- TO CONTINUE TO WATCH BLEEDING, VS, AND URINE OUTPUT.
--- NOTE | 2019-05-10 16:00 | NUR ---
SLEEPING, AROUSED EASILY FOR BLEEDING CHECK, NO BLOOD NOTED ON ALEKSEY-PAD. NO CURRENT REQUESTS. SAID SHE WAS HUNGRY, EXPLAINED SHE IS NPO FOR NOW. WENT BACK TO SLEEP. VISITOR IN ROOM. INFANT IN VISITOR ARMS. SIDERAILS UP X 2, CALL LIGHT IN REACH.
--- NOTE | 2019-05-10 16:54 | NUR ---
POSITIONED TO RIGHT SIDE WITH MINIMAL ASSISTANCE. DEEP BREATHED AND COUGHED BEFORE TURNING. DENIES PAIN/CRAMPING STATES "I'VE BEEN SLEEPING". CASILLAS DRAINING CLEAR YELLOW URINE, NO VAGINAL BLEEDING NOTED. INFANT IN CRIB, VISITOR IN ROOM, SIDERAILS UP X 2, CALL LIGHT IN REACH. TO CALL IF ANYTHING IS NEEDED. NO SIGNS OF INFILTRATION AT IV SITE.
--- NOTE | 2019-05-10 17:02 | MORECARE ---
CASE MANAGEMENT DISCHARGE SUMMARY PATIENT: SHANTELL STEWARD UNIT: [id number] ADM DATE: 05/09/19 AGE: 29 : 89 SEX: F ROOM/BED: D.1278 AUTHOR: ANNA MARSHALL PHYSICIAN: REFERRING PHYSICIAN: GIANNA CUETO MD DATE OF SERVICE: 05/10/19 Discharge Plan Patient Name: SHANTELL STEWARD Facility: [facility]:[place] : 1990 Planned Disposition: Anticipated Discharge Date: Discharge Date: Expected LOS: Initial Reviewer: [email or web address] Initial Review Date: 05/09/2019 Generated: 05/10/19 6:01 pm Patient Name: SHANTELL STEWARD Page [id number] at 1702 All edits/amendments must be made on the electronic document DICTATION DATE: 05/10/191700 SUMMER INTERN: SCOOTER 05/10/191700 RPT#: [id number] DC DATE: STATUS: ADM IN [facility] [address] [place] [address] END OF REPORT
--- NOTE | 2019-05-10 17:53 | NUR ---
AWAKE, ALERT AND ORIENTED. C/O 8/10 ABDOMINAL CRAMPING. TYLENOL #3 2 TABS GIVEN PO FOR RELIEF. 2/U FIRM DEVIATED TO LEFT. PT CURRENTLY WITH UTERINE PACKING. SCANT LOCHIA ON ALEKSEY-PADS X 2, WEIGHT BLOOD LOSS 10 CC. CASILLAS DRAINING CLEAR YELLOW URINE. SIPS OF WATER TAKEN WITH MEDICATION AND TWO ICE CHIPS GIVEN. MOUTH MOISTURIZER ALSO GIVEN. INSTRUCTED PT THAT MD WILL BE CALLING AFTER 1900 AND MAY CHANGE POC. CURRENT IS CONTINUE NPO, CASILLAS, PAIN MANAGEMENT, BLEEDING ASSESSMENT AND ANTIBIOTICS. VISITOR REMAINS IN ROOM WITH IN CRIB. SIDE RAILS UP X3, CALL LIGHT IN REACH. SCDS WORKING BILATERALLY. TOTAL URINE OUTPUT SINCE OR- 1275; TOTAL WEIGHT BLOOD LOSS SINCE ONSET OF PPH 1261 CC. TOTAL WEIGHTED BLOOD LOSS SINCE RETURN FROM OR: 36 CC.
--- NOTE | 2019-05-10 18:10 | NUR ---
SITTING IN BED HOLDING . REMINDED NOT TO FALL ASLEEP WITH INFANT IN ARMS. TO ASK FOR ASSISTANCE IF FEELING DROWSY TO PUT IN CRIB. VISITOR X 1 IN ROOM. VERBALIZED UNDERSTANDING. TEMP 98.5
--- NOTE | 2019-05-10 18:53 | NUR ---
REC'D BEDSIDE REPORT FROM Urszula TINAJERO RN. PT AA&O X4. PAIN ASSSESSED. PT REPORTS PAIN LEVEL 5/10 AFTER BEING MEDICATED W/TYLENOL #3. PT HAS A SALINE LOCK TO LEFT FOREARM AND PIV TO RT FOREARM. CURRENTLY TRANEXAMIC INFUSING AT 12.5ML/HR PER MD ORDERS TO INFUSE OVER 8 HOURS TO RT PIV. BOTH SITES W/OUT REDNESS OR SWELLING. WNL. SHIFT ASSESSMENT COMPLETED AT THIS TIME. BREATHSOUNDS CL/=, ABD SOFT, NONDISTENDED. FUNDUS U/1 W/SLIGHT SHIFT TO LEFT. ABD TENDER, GENTLE FUNDAL MASSAGE, FUNDUS DEEP AND FIRM. REPORT REC'D PT HAS VAG PACKING IN PLACE PER MD THIS AM. CASILLAS CATH IN PLACE DRAINING VIA GRAVITY AT BEDSIDE. CURRENT PERIPAD W/SCANT BLEEDING NOTED. NO EDEMA TO LE'S, PEDAL PULSES PRESENT X 2. SCD WRAPS ON BILATERALLY. CONNECTED TO PUMP. PUMP IS ON AND FUNCTIONING. COMPLETE BED LINEN CHANGE DONE. CLEAN GOWN, PINK PAD, CHUX AND PERIPAD CHANGED. PP HEMORRHAGE TEACHING PROVIDED AND PT INFORMED THAT ALL PERIPAD WILL BE COLLECTED AND WEIGHED Q HR FOR MONITORING. PT VERBALIZES UNDERSTANDING AND AGREEABLE. PT VERBALZIES UNDERSTANDING THAT SHE IS TO BE NPO. REQUEST ICE CHIPS. ICE CHIPS SERVED. PT'S MOTHER AT PT'S SIDE. I&O COLLECTED AT 192. SEE FLOWSHEET. QBL TOTALS DOC ON OUTPUT FLOWSHEET.BED LOW, SIDE RAILS UP X 2. CALL LIGHT AND PHONE AT PT'S SIDE. PT DENIES FURTHER NEEDS AT THIS TIME.
--- NOTE | 2019-05-10 20:45 | NUR ---
THIS RN TO BEDSIDE TO ADMIN ORDERED ZOSYN IVPB. PT LYING AWAKE IN BED WATCHING TV. PAIN ASSESSED. PT REPORTS PAIN 2/10. SALINE LOCK TO LEFT FOREARM FLUSHED. SITE WNL AND FLUSHES EASILY. EXISTING 500ML BAG OF NS CONNECTED TO SITE FOR PRIMARY LINE. ZOSYN CONNECTED AND PLACED ON PUMP TO INFUSE AT 100ML/HR. I&O COLLECTED AT THIS TIME. SEE FLOWSHEET.QBL COLLECTED.CURRENT PERIPAD W/SCANT TO SMALL LOCHIA NOTED. WEIGHED AND DISCARDED. CLEAN PERIPAD PLACED. PT DENIES NEEDS AT THIS TIME.
--- NOTE | 2019-05-10 21:30 | NUR ---
DR CUETO CALLS UNIT INQUIRING ABOUT PATIENT. REPORT GIVEN OF P'S CURRENT QBL AND PT IS STABLE, DOING WELL. ORDERS REC'D PT MAY BEGIN EATING A REGULAR DIET. MD TO SEE PATIENT IN THE AM UNLESS NEEDED THIS PM.
--- NOTE | 2019-05-10 21:47 | NUR ---
THIS RN TO ROOM TO INFORM PT THAT DR CUETO HAS CALLED THE UNIT CHECKING ON HER AND HAS GIVEN AN ORDER FO PT TO HAVE A REGULAR DIET AND TO ENCOURAGE PO FLUIDS. PT QUESTIONED ABOUT WHAT SHE'D LIKE TO EAT. SANDWICH TRAY AND 1 CHOCOLATE PUDDING AND [facility] MUG W/ICE WATER SERVED. I&O, QBL COLLECTED. SEE FLOWSHEET. IV LINE DISCONNECTED FROM LEFT FOREARM AND SWAB CAP PLACED. PT DENIES NEEDS AT THIS TIME. BED LOW, SIDE RAILS UP X 2. CALL LIGHT AND PHONE AT PT'S SIDE.
--- NOTE | 2019-05-10 22:45 | NUR ---
ROUNDS MADE. PAIN AND NEEDS ASSESSED. PT REPORTS PAIN 06/11. STATES "IT'S NOT TOO BAD." NO REQUEST FOR ADDITIONAL PAIN MEDICATION AT THIS TIME. I&O, QBL COLLECTED. SEE FLOWSHEET. CLEAN PERIPAD PLACED. PT HAS DRANK ALL THE WATER PREVIOUSLY SERVED. [facility] MUG REFILLED W/FRESH ICE WATER. PT REPORTS SHE WAS ABLE TO CONSUME 100% OF SANDWICH SERVED. DENIES NAUSEA. TRASH REMOVED FROM ROOM.
[2019-05-11] VITALS (10 sets, daily range): BP systolic 98–113; BP diastolic 52–93
--- NOTE | 2019-05-11 00:45 | NUR ---
ROUNDS MADE. PT LYING IN SUPINE POSITION SLEEPING. SNORING AUDIBLE. RESP EVEN AND UNLABORED. PT LEFT UNDISTURBED AT THIS TIME. URINE OUTPUT NOTED TO BE 100ML. UROMETER NOT DUMPED AT THIS TIME.
--- NOTE | 2019-05-11 01:45 | NUR ---
THIS RN TO BEDSIDE TO OBTAIN VITAL SIGNS AND ADMIN ORDERED ZOSYN. PT WAKES W/VERBAL STIMULUS. PAIN ASSESSED. PT REPORTS PAIN 5/10. PAIN MEDICATION OFFERED. PT ACCEPTS. SEE EMAR. ORDERED ZOSYN UP TO INFUSE AT 100ML/HR VIA IVPB. PT C/O ROOM TEMP BEING TOO WARM. TEMP ADJUSTED. PT DENIES FURTHER NEEDS AT THIS TIME.
--- NOTE | 2019-05-11 02:45 | NUR ---
ROUNDS MADE FOR PAIN REASSESSMENT. PT BACK TO SLEEP IN SUPINE POSITION SLEEPING. SNORING AUDIBLE. RESP EVEN AND UNLABORED. NO DISTRESS NOTED. URINE OUTPUT NOTED TO BE 50ML (25ML/HR FOR PAST 2 HRS.). ZOSYN INFUSION COMPLETE. PRIMARY LINE OF NS CONTINUES TO UNFUSE AT 100ML.
--- NOTE | 2019-05-11 03:30 | NUR ---
THIS RN TO BEDSIDE FOR SCHEDULED CYTOTEC PO ADMIN. PT WAKENED. REPORTS PAIN 04/13. I&O COLLECTED. SEE FLOWSHEET. APPROX 40ML NOTED IN UROMETER. CATH REPOSITIONED W/NO FURTHER RETURN. UROMETER DUMPED AT THIS TIME. PERIPAD CHECKED,WEIGHED AND CHANGED ALONG W/CURRENT CHUX. NS INFUSION INCREASED TO 900ML/HR FOR A 500ML BOLUS. PT DENIES NEEDS AT THIS TIME.
--- NOTE | 2019-05-11 04:11 | NUR ---
bolus complete at this time. iv rate decreased to 100ml/hr.
--- NOTE | 2019-05-11 04:45 | NUR ---
THIS RN TO BEDSIDE TO ASSESS URINE OUTPUT. CURRENT OUTPUT NOTED TO BE 60ML/HR. UROMETER DUMPED AT THIS TIME. PT CURRENTLY SLEEPING. SNORING AUDIBLE. RESP EVEN AND UNLABORED. PT LEFT UNDISTURBED AT THIS TIME TO ALLOW FOR REST.
--- NOTE | 2019-05-11 06:46 | NUR ---
dr friedman to pt's room at this time discussing procedure yesterday.
--- NOTE | 2019-05-11 06:50 | NUR ---
1/[address] friedman at this time. orders rec'd. remains at bedside discussing expectations and possibilities.
--- NOTE | 2019-05-11 07:00 | NUR ---
LATE ENTRY- CASILLAS CATH EMPTIED AT THIS TIME. APPROX 650MG NOTED FOR PM SHIFT. SCANT LOCHIA NOTED. NO PAD CHANGE AT THIS TIME.
--- NOTE | 2019-05-11 08:13 | NUR ---
SHIFT ASSESSMENT COMPLETED PER FLOWSHEET. VSS. FUNDUS FIRM MIDLINE AND U2 WITH SCANT RUBRA LOCHIA, NO CLOTS NOTED. TAIL OF VAG PACKING REMAINS IN PLACE. PERICARE DONE. QBL TO PERIPAD 28 MLS. 100 MLS CLEAR LIGHT YELLOW URINE EMPTIED FROM CASILLAS. INSTRUCTED ON INCENTIVE SPIROMETER USE, DEMONSTRATES UNDERSTANDING. COUGH AND DEEP BREATHING DONE WITH GOOD EFFORT. ENCOURAGED PO HYDRATION, ICE WATER PROVIDED. POC DISCUSSED WITH PT AND HER MOTHER, BOTH VERBALIZE UNDERSTANDING AND DENY QUESTIONS. PT SITTING IN HIGH FOWLERS TO FINISH BREAKFAST. REMAINS IN ROOM.
--- NOTE | 2019-05-11 09:09 | NUR ---
HOB IN SEMI-FOWLERS POSITION, PT LAYING ON RIGHT SIDE RESTING WITH EYES CLOSED. RESP REGULAR AND UNLABORED, NO S/S OF DISTRESS NOTED. WILL CONTINUE TO MONITOR.
--- NOTE | 2019-05-11 10:13 | NUR ---
DR. CUETO AT BEDSIDE. 1/[address] CUETO. NO BRB NOTED WITH PACKING REMOVAL. DR. CUETO DISCUSSES POC WITH PT, PT DENIES QUESTIONS. 4 MLS QBL TO PERIPAD, 175 MLS CLEAR LIGHT YELLOW URINE FROM CASILLAS. INCENTIVE SPIROMETER DONE X5, COUGH AND DEEP BREATHING DONE WITH GOOD EFFORT. SCD'S REMAIN ON BLE. PT REPOSITIONS SELF TO L SIDE. RESTING IN OPEN CRIB AT BEDSIDE. BED IN LOW POSITION WITH SRUP X2. CALL LIGHT AND PHONE WITHIN REACH.
--- NOTE | 2019-05-11 12:02 | NUR ---
VSS. FUNDUS FIRM, MIDLINE AND U2 WITH SCANT RUBRA LOCHIA NOTED. I&O DONE PER FLOWSHEET. DENIES PAIN AND NEEDS. PERICARE DONE. BED IN LOW POSITION WITH SRUP X2. CALL LIGHT AND PHONE WITHIN REACH. WILL CONTINUE TO MONITOR.
--- NOTE | 2019-05-11 12:23 | MORECARE ---
CASE MANAGEMENT DISCHARGE SUMMARY PATIENT: DIANA MONTIEL UNIT: [id number] ADM DATE: 05/09/19 AGE: 29 : 90 SEX: F ROOM/BED: D.1108 AUTHOR: ROLANDO,DOC PHYSICIAN: REFERRING PHYSICIAN: GIANNA CUETO MD DATE OF SERVICE: 05/11/19 Discharge Plan Patient Name: DIANA MONTIEL Facility: [facility]:[place] : 1990 Planned Disposition: Anticipated Discharge Date: Discharge Date: Expected LOS: Initial Reviewer: [email or web address] Initial Review Date: 05/09/2019 Generated: 05/11/19 1:23 pm Comments DCP- Discharge Planning Updated by [email or web address]: Vaishali Henry on 05/11/19 11:[address] Consult received from Dr. Sosa: Mom pot for amphet on delivery and had limited pnc. MOB: Diana Montiel [address] [place] [address] [phone] FOB: Jorge Kat [address], [place] [address] [phone] MOTHER OF BABY: CM met with GRACE and GRACE's mother, Vikki Montiel to discuss cm consult. GRACE gave permission to speak in front of her mother. GRACE does not work and plans to be home with baby at all times. She does not have a vehicle of her own and will have to depend upon FOB, her mother, and the neighbor to provide transportation for the baby to doctor visits. GRACE has 3 other children ages 2,7,9 which their paternal grandmother (her ex mother in law) has custody of them. She reports she voluntarily gave custody to her ex mother in law to get her life back in order. She did report that this was drug related as well. She reports she has smoked meth during her 2 x per week up until the past 3 months. 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 She stated on before her delivery she took Sudafed for a cold (she purchased at [place] [employer]) she had along with multiple OTC cough syrups. She reports she smokes cigarettes daily and she smoked throughout her . She smokes one pack of cigarettes every 3 days. She reports she did not seek care because she lives in [place] without transportation. She stated her mother did become available at some point in her and was able to get her to the doctor. She agreed to information on drug rehab options. Cm provided resources on drug rehabs. FATHER OF THE BABY: Jorge Kat - he works maritime pilot repairing chicken [employer] and farm equipment. He stated this job approx. one month ago. She recently reconciled her relationship with Jorge 3 weeks ago and moved in with him. He has a truck that he drives. She reports he has to get tags, insurance, fuses, and headlights for the truck before she or the baby will ride in it. Jorge has one son that is the age of 4. He does not have custody of his son at this time. The maternal grandfather, Kian Macedo has custody of him. GRACE reports RAHUL also smokes meth but to her knowledge he has not been using meth since she moved back in with him. HOME ENVIRONMENT: GRACE reports the home environment is safe. They have running city water, working electricity, their home is heated and cooled by electricity. She has smoke detectors in the home. DONITA educated her on importance of changing the batteries with the daylight savings time. DONITA educated her on nursery water and she reports she already purchased this for the baby. She verbalized understanding. There is one cat in the home. Both GRACE and RAHUL smoke cigarettes but she reports they will be smoking outside of the home and not around the baby. She has a car seat in the vehicle outside. DONITA educated her that the car seat will have to be in the room before baby can leave the hospital. She is aware of Medicaid and already has WIC. She stated she just has to make appointment to take the baby for formula. She does plans to bottle feed with formula and not breast feed the baby. She does not and has not applied for food stamps at this time but stated she will do so. She reports she has all the items for the baby, clothes, diapers, crib, bassinet and bottles. She plans to use Carolyn HOLLINS @ Dr. Allen's office as her metal cnc operator. Home visit with CPS is scheduled for today and her mother Vikki Montiel will be doing the home visit with CPS. DC PLAN: is to return home with FOB where she plans to take care of baby. She denied further dc assistance and reports she feels she has the support she needs from the FOB, her mother, and her neighbor. Last DP export: 05/10/19 4:02 pm Patient Name: DIANA MONTIEL Page [id number] at 1223 All edits/amendments must be made on the electronic document DICTATION DATE: 05/11/19 1223 FILTER TENDER: SCOOTER 05/11/19 1223 RPT#: [id number] DC DATE: STATUS: ADM IN [facility] [address] [place] [address] END OF REPORT
--- NOTE | 2019-05-11 13:00 | NUR ---
DR CUETO CALLS. STATES TO REMOVE VAG PACKING AND WILL CALL BACK AT 1400 FOR STATUS REPORT.
--- NOTE | 2019-05-11 13:20 | NUR ---
NOTIFIED Rick CASILLAS RN OF ORDER RECEIVED FROM DR CUETO TO REMOVE VAG PACKING AND WILL CALL BACK AT 1400 FOR STATUS REPORT.
--- NOTE | 2019-05-11 13:28 | NUR ---
VAG PACKING REMOVED WITHOUT DIFFICULT. NO BRB NOTED. NO LOCHIA NOTED ON PERIPADE. NO CLOTS PRESENT. FUNDUS FIRM, MIDLINE AND U2 WITH SCANT RUBRA LOCHIA, NO CLOTS NOTED. 2 TABS TYLENOL #3 GIVEN FOR C/O PERINEAL AND ABD DISCOMFORT. R FA PIV FLUSHES WITHOUT DIFFICULTY, ZOSYN HUNG PER ORDER. PT REQUEST INFANT, WILL BRING TO ROOM.
--- NOTE | 2019-05-11 13:46 | NUR ---
INFANT TO ROOM PER PT REQUEST. PT IN HIGH FOWLERS POSITION. FUNDUS FIRM MIDLINE AND U2 WITH SCANT RUBRA LOCHIA, NO CLOTS NOTED. CONVERSING WITH VISITOR. DENIES NEEDS AT THIS TIME. CASILLAS CONTINUES TO DRAIN TO BEDSIDE DRAINAGE. BED IN LOW POSITION WITH SRUP X2. CALL LIGHT AND PHONE WITHIN REACH. WILL CONTINUE TO MONITOR.
--- NOTE | 2019-05-11 13:49 | NUR ---
DR CUETO CALLS. ORDER RECEIVED FOR CBC NOW.
--- NOTE | 2019-05-11 14:23 | NUR ---
ZOSYN INFUSION COMPLETED AND PIV SL. FUNDUS REMAINS FIRM, MIDLINE AND U2 WITH SCANT RUBRA LOCHIA, NO CLOTS NOTED. PT INSTRUCTED ON TECHNIQUES TO AROUSE INFANT. DIAPER CHANGED. INFANT PLACED BACK IN PT'S ARM FOR FEEDING. DENIES ADDITIONAL NEEDS. BED IN LOW POSITION WITH SRUP X2. CALL LIGHT AND PHONE WITHIN REACH. WILL CONTINUE TO MONITOR.
--- NOTE | 2019-05-11 14:27 | NUR ---
LAB AT BEDSIDE TO DRAW CBC.
[2019-05-11 15:19] LABS: BASOPHILS 0.1 % (0-2); EOSINOPHILS 1.1 % (0-7); IMMATURE GRANULOCYTES 0.4 % (0-5); LYMPHOCYTES 27.4 % (15-50); MCH 26.4 pg (26.0-34.0); MCHC 31.3 g/dL (31.0-37.0); MCV 84.3 fL (80.0-100.0); MEAN PLATELET VOLUME 11.3 fL (7.4-10.4); PLATELET COUNT 201 10x3/uL (130-400); RDW 14.3 % (11.5-14.5); WBC 8.1 10x3/uL (4.8-10.8)
[2019-05-11 15:22] LABS: HEMATOCRIT 19.8 % (36.0-48.0); HEMOGLOBIN 6.2 g/dL (12-16); RBC 2.35 10x6/uL (4.00-5.40)
--- NOTE | 2019-05-11 15:32 | NUR ---
CBC DRAWN PER THIS RN FROM L HAND AND TAKEN TO LAB.
--- NOTE | 2019-05-11 15:44 | NUR ---
H&H CALLED TO DR. CUETO. ORDERS REC'D.
--- NOTE | 2019-05-11 16:03 | NUR ---
PT UPDATED ON POC. VERBALIZES UNDERSTANDING AND AGREEMENT. PREMEDS GIVEN PER ORDER. PT EDUCATED ON MEDS, DENIES QUESTIONS. C/O INTERMITTENT ABD CRAMPING 06/11, DENIES ADDITIONAL NEEDS AT THIS TIME. BED IN LOW POSITION WITH SRUP X2. CALL LIGHT AND PHONE WITHIN REACH. WILL CONTINUE TO MONITOR.
--- NOTE | 2019-05-11 16:22 | NUR ---
1ST UNIT PRBC VERIFIED WITH Paramjit HUTCHINS RN. VSS. PRBC TRANSFUSION INITIATED AT 75 MLS/HR TO R FA PIV. PT EDUCATED ON POSSIBLE TRANSFUSION REACTION AND S/S TO REPORT, VERBALIZES UNDERSTANDING AND DENIES QUESTIONS. RN REMAINS AT BEDSIDE.
--- NOTE | 2019-05-11 16:39 | NUR ---
VSS. NO S/S OF TRANSFUSION REACTION NOTED. PRBC RATE INCREASED TO 125 MLS/HR. INFUSING WITHOUT DIFFICULTY TO R FA PIV, NO S/S OF INFILTRATION. WILL CONTINUE TO MONITOR. RESTING IN OPEN CRIB AT BEDSIDE. PT EATING EVENING MEAL.
--- NOTE | 2019-05-11 16:58 | NUR ---
V/S REMAIN STABLE, NO S/S OF TRANSFUSION REACTION NOTED. PRBC RATE INCREASED TO 150 MLS/HR. WILL CONTINUE TO MONITOR. BED IN LOW POSITION WITH SRUP X2. CALL LIGHT AND PHONE WITHIN REACH. WILL CONTINUE TO MONITOR.
--- NOTE | 2019-05-11 18:30 | NUR ---
1ST UNIT PRBC TRANSFUSION COMPLETED. VSS. NO S/S OF TRANSFUSION REACTION NOTED. SWITCHED TO NS TO FLUSH. FUNDUS REMAINS FIRM, MIDLINE AND U2 WITH SCANT SEROSANGUINEOUS LOCHIA NOTED, NO CLOTS. PERICARE DONE. 300 MLS CLEAR LIGHT YELLOW EMPTIED FROM CASILLAS. WILL CONTINUE TO MONITOR AND ASSIST PRN.
--- NOTE | 2019-05-11 19:17 | NUR ---
PT REC'D IN BED AT THIS TIME. STATES THAT PAIN IS A 3-4 ON PAIN SCALE. SCANT LOCHIA NOTED. FUDUS FIRM AND U/3. SCDS IN PLACE AND FUNCTIONAL. CASILLAS CATH PATENT WITH YELLOW URINE NOTED. NO DISTRESS NOTED. SIDERAILS UP FOR SAFETY. CALL LIGHT IN PT REACH. Rashida URIBE RN
--- NOTE | 2019-05-11 19:38 | NUR ---
SECOND UNIT OF BLOOD UP AT THIS TIME. WILL CONTINUE TO MONITOR. FOR S/S OF REACTION. Rashida URIBE RN
--- NOTE | 2019-05-11 20:45 | NUR ---
PT MEDICATED FOR PAIN LEVEL OF 6-7. WILL CONTINUE TO MONITOR. Rashida URIBE RN
--- NOTE | 2019-05-11 21:23 | NUR ---
PT RESTING AT THIS TIME. STATES THAT PAIN IS NOW A 4. NO S/S OF REACTION NOTED. Rashida URIBE RN
--- NOTE | 2019-05-11 22:44 | NUR ---
SECOND UNIT OF BLOOD COMPLETED AT THIS TIME. IV CONVERTED TO SALINE LOCK. CASILLAS CATH DISCONTINUED AT 2250 AND PATIENT UP TO BATHROOM FOR PERICARE. NO DIZZINESS NOTED. BLEEDING REMAINS SCANT. Rashida URIBE RN
--- NOTE | 2019-05-11 23:40 | NUR ---
PT TRANSFERRED VIA AMB, GAIT STEADY, FROM L&D TO WOMEN SERVICES ROOM 1218, PER BJORN URIBE RN, PT TO BED, PT ORIENTED TO ROOM, BED IN LOW POSITION, SIDE RAILS X 2, CALL LIGHT IN REACH
--- NOTE | 2019-05-12 00:36 | NUR ---
PT AWAKE, PT C/O CRAMPING, ADM TYLENOL WITH CODEINE PO PER MD ORDERS, SEE EMAR, PT DENIES FURTHER NEEDS, BEDDING PROVIDED TO PT'S MOM, INFANT IN OPEN CRIB CART AT BEDSIDE
--- NOTE | 2019-05-12 01:30 | NUR ---
PT RESTING WITH EYES CLOSED, RESP QUIET, NO DISTRESS NOTED, LEFT UNDISTURBED AT THIS TIME, PT'S MOM AWAKE AT BEDSIDE, INFANT IN OPEN CRIB CART AT BEDSIDE
--- NOTE | 2019-05-12 03:09 | NUR ---
PT RESTING WITH EYES CLOSED, AROUSES TO SOFT VERBAL STIMULATION, ADM CYTOTECT PO PER MD ORDERS, SEE EMAR, PT UP TO BR, GAIT STEADY, VOIDED 600 MLS OF LIGHTLY BLOOD TINGED URINE WITH NO DIFFICULTY, PT REPORTS SCANT VAG BLEEDING, PT BACK TO BED, SCD'S CONNECTED TO PUMP AND WORKING PROPERLY, PT DENIES NEEDS OR PAIN AT THIS TIME, PT'S MOM AT BEDSIDE
--- NOTE | 2019-05-12 05:24 | NUR ---
PT RESTING WITH EYES CLOSED, RESP QUIET, NO DISTRESS NOTED, LEFT UNDISTURBED AT THIS TIME, SCD'S CONTINUE ON AND WORKING PROPERLY, PT'S MOM ASLEEP AT BEDSIDE
--- NOTE | 2019-05-12 05:41 | NUR ---
PT PAID SEARCH MARKETING ANALYST LIGHT, SCD'S DISCONNECTED AT THIS TIME FOR PT TO GET UP TO BR, GAIT STEADY, PT'S MOM AT BEDSIDE
[2019-05-12 07:13] LABS: RAPID PLASMA REAGIN Non Reactive (Non Reactive)
[2019-05-12 07:30] VITALS: BP 113/66
--- NOTE | 2019-05-12 07:54 | NUR ---
ASSESSMENT DONE. AWAKE AND ALERT-VERBAL RESPONSES APPRO TO QUESTIONS. UP TO BATHROOM NEEDED. STATES VOIDING WITHOUT PROBLEMS. INFANT IN ROOM. FUNDUS U1/FIRM. SCANT-SMALL LOCHIA NOTED ON PAD. DENIES NEEDS. REG DIET SERVED.
--- NOTE | 2019-05-12 08:29 | NUR ---
DR CUETO HERE TO SEE PT- STATES HE WILL PLACE ORDERS FOR IRON AND BENADRYL.
--- NOTE | 2019-05-12 11:02 | NUR ---
iton infusion started. denies other needs.
--- NOTE | 2019-05-12 11:34 | MORECARE ---
CASE MANAGEMENT DISCHARGE SUMMARY PATIENT: DIANA MONTIEL UNIT: [id number] ADM DATE: 05/09/19 AGE: 29 : 90 SEX: F ROOM/BED: D.1218 AUTHOR: ANNA MARSHALL PHYSICIAN: REFERRING PHYSICIAN: GIANNA CUETO MD DATE OF SERVICE: 05/12/19 Discharge Plan Patient Name: DIANA MONTIEL Facility: [facility]:[place] : 1990 Planned Disposition: Anticipated Discharge Date: Discharge Date: Expected LOS: Initial Reviewer: [email or web address] Initial Review Date: 05/09/2019 Generated: 05/12/19 12:33 pm Comments DCP- Discharge Planning Updated by [email or web address]: Vaishali Henry on 05/11/19 11:[address] Consult received from Dr. Sosa: Mom pot for amphet on delivery and had limited pnc. MOB: Diana Montiel [address] [place] [address] [phone] FOB: Jorge Kat [address] [place], [place] [address] [phone] MOTHER OF BABY: CM met with GRACE and GRACE's mother, Vikki Montiel to discuss cm consult. GRACE gave permission to speak in front of her mother. GRACE does not work and plans to be home with baby at all times. She does not have a vehicle of her own and will have to depend upon FOB, her mother, and the neighbor to provide transportation for the baby to doctor visits. GRACE has 3 other children ages 2,7,9 which their paternal grandmother (her ex mother in law) has custody of them. She reports she voluntarily gave custody to her ex mother in law to get her life back in order. She did report that this was drug related as well. She reports she has smoked meth during her 2 x per week up until the past 3 months. 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 She stated on before her delivery she took Sudafed for a cold (she purchased at [employer]) she had along with multiple OTC cough syrups. She reports she smokes cigarettes daily and she smoked throughout her . She smokes one pack of cigarettes every 3 days. She reports she did not seek care because she lives in [place] without transportation. She stated her mother did become available at some point in her and was able to get her to the doctor. She agreed to information on drug rehab options. Cm provided resources on drug rehabs. FATHER OF THE BABY: Jorge Kat - he works time analysis clerk repairing chicken [employer] and farm equipment. He stated this job approx. one month ago. She recently reconciled her relationship with Jorge 3 weeks ago and moved in with him. He has a truck that he drives. She reports he has to get tags, insurance, fuses, and headlights for the truck before she or the baby will ride in it. Jorge has one son that is the age of 4. He does not have custody of his son at this time. The maternal grandfather, Kian Macedo has custody of him. GRACE reports RAHUL also smokes meth but to her knowledge he has not been using meth since she moved back in with him. HOME ENVIRONMENT: GRACE reports the home environment is safe. They have running city water, working electricity, their home is heated and cooled by electricity. She has smoke detectors in the home. DONITA educated her on importance of changing the batteries with the daylight savings time. DONITA educated her on nursery water and she reports she already purchased this for the baby. She verbalized understanding. There is one cat in the home. Both GRACE and RAHUL smoke cigarettes but she reports they will be smoking outside of the home and not around the baby. She has a car seat in the vehicle outside. DONITA educated her that the car seat will have to be in the room before baby can leave the hospital. She is aware of Medicaid and already has WIC. She stated she just has to make appointment to take the baby for formula. She does plans to bottle feed with formula and not breast feed the baby. She does not and has not applied for food stamps at this time but stated she will do so. She reports she has all the items for the baby, clothes, diapers, crib, bassinet and bottles. She plans to use Carolyn HOLLINS @ Dr. Allen's office as her finish specialist. Home visit with CPS is scheduled for today and her mother Vikki Montiel will be doing the home visit with CPS. DC PLAN: is to return home with FOB where she plans to take care of baby. She denied further dc assistance and reports she feels she has the support she needs from the FOB, her mother, and her neighbor. Last DP export: 05/11/19 11:23 am Patient Name: DIANA MONTIEL Page [id number] at 1134 All edits/amendments must be made on the electronic document DICTATION DATE: 05/12/19 1133 BURRING MACHINE OPERATOR: SCOOTER 05/12/19 1133 RPT#: [id number] DC DATE: STATUS: ADM IN [facility] [address] [place] [address] END OF REPORT
--- NOTE | 2019-05-12 11:42 | OP ---
PATIENT NAME: SHANTELL STEWARD MEDICAL RECORD: [id number] :89 LOCATION:[place] D.1218 ADMISSION DATE:05/09/19 SURGEON: VIC CUETO MD DATE OF OPERATION: 05/09/2019 PREOPERATIVE DIAGNOSES: 1. day #1, status post vaginal delivery 12 hours. 2. History of methamphetamine use and drug abuse in . 3. hemorrhage. POSTOPERATIVE DIAGNOSES: 1. day #1, status post vaginal delivery 12 hours. 2. History of methamphetamine use and drug abuse in . 3. hemorrhage. PROCEDURE: 1. Exam under anesthesia. 2. D and C. 3. Uterine packing. SURGEON: Vic Cueto MD DEPARTMENTAL BUYER: Luciano Murphy. ANESTHESIA: General. FINDINGS: Vaginal vault without laceration. The cervix is unremarkable; cervix without laceration or active bleeding. Scant tissue was returned at the time of D&C. Membranes are identified and teased from the uterine cavity and noted to be adherent to the uterine wall. SPECIMENS REMOVED: Products of conception. SPECIMEN DISPOSITION: Pathology. ESTIMATED BLOOD LOSS: 500 cc. FLUIDS: 500 cc. URINE OUTPUT: Less than 100 cc. COMPLICATIONS: None. DRAIN: Mejia to gravity. INDICATIONS: The patient is a 29-year-old G4, para 3 with a history of methamphetamine use in and recent vaginal delivery. The patient was recovering well until earlier this morning when she began to pass large clots with continued heavy bleeding, soaking a pad within 30 minutes on at least 2 occasions. The patient was assessed and found to have active vaginal bleeding, large clots in the vaginal vault. The patient is consented for exam under anesthesia, D and C and any indicated procedure including but not limited to exploratory laparotomy and hysterectomy. DESCRIPTION OF PROCEDURE: After informed consent was assured, the patient was OPERATIVE REPORT [id number] SHANTELL STEWARD taken to the operating room where anesthetic is obtained, and she was prepped and draped after being placed in Yellofin stirrups. A weighted speculum was introduced in the vagina and the cervix visualized. The anterior lip was grasped with a ring forceps and then the posterior aspect of the cervix grasped. With the cervix on gentle traction, the cervix was inspected and no lacerations were noted. Active bleeding occurs from the uterus. A curettage was now performed with a large curette. Cry was obtained. Minimal amounts of tissue was removed. Suction device was used to remove clot and debris from the uterine lining. There appears to be membranes at the posterior edge of the cervix and this was grasped with ring forceps and traction gently applied. The membrane is removed with some effort due to what appears to be adherent tissue. Inspection of the uterus and cervix reveals continued active bleeding. A Kerlix gauze is now packed tightly into the uterus. The patient has received TXA with presentation of hemorrhage on the floor and will receive a second dose over 8 hours. The patient will remain on antibiotics and receive SCDs for DVT prophylaxis. Sponge, lap, and needle counts correct times 2. TRANSINT:[id number] Voice Confirmation ID: [id number] DOCUMENT ID: [id number] VIC CUETO MD at 1142 CC: [id number] DICTATION DATE: 05/10/19 1236 GEOSPATIAL ENGINEER: 05/10/191955 ADM IN [facility] [address] [place] [address]
--- NOTE | 2019-05-12 11:54 | NUR ---
ASLEEP ON LT SIDE-RESP REG AND EVEN.
[2019-05-12 12:23] VITALS: BP 107/71
--- NOTE | 2019-05-12 12:24 | NUR ---
vs done-oswaldo needs, reg diet served.
--- NOTE | 2019-05-12 13:00 | NUR ---
IRON INFUSION COMPLETE- LINE FLUSHED WITH NS. PT GIVEN T-DAP INFO SHEET. PT REFUSES T-DAP VACCINE.
--- NOTE | 2019-05-12 13:32 | NUR ---
[facility] PERSONNELL IN ROOM TALKING WITH PT.
--- NOTE | 2019-05-12 14:18 | NUR ---
PHONED DR CUETO OFFICE TO INFORM OF [facility] DECISION AND IRON INFUSION COMPLETE.
--- NOTE | 2019-05-12 14:25 | NUR ---
co cramping and requesting pain medication- rates pain a 6 on scale of 0-10. med given. baby in arms.
--- NOTE | 2019-05-12 15:20 | NUR ---
DISCHARGE ORDER RECEIVED FROM DR CUETO. PT STATES SHE WANTS TO GO HOME. DISCHARGED WITH [facility]. SALINE LOCK X2 REMOVED- RT AND LT FOREARM BOTH CATH TIPS INTACT- PRESSURE HELD AND BANDAIDES APPLIED.
--- NOTE | 2019-05-12 15:51 | NUR ---
UP TO SHOWER AND DRESS.
[2019-05-12] MEDS ORDERED: IBUPROFEN800 MG PO (15:57)
--- NOTE | 2019-05-12 16:15 | NUR ---
SHOWER TAKEN AND TOLERATED WELL.
--- NOTE | 2019-05-12 16:30 | NUR ---
PT STATES THAT SHE IS READY FOR DISCHARGE. UP AND ABOUT IN ROOM- LAYO WELL. DISCHARGE INST VERBAL AND WRITTEN GIVEN. SCRIPT X1 FOR MOTRIN GIVEN ALONG WITH PT MED REC. PFW INST GIVEN. AWHONN INST GIVEN. SEE ALSO SIGNED DISCHARGE INST SHEET. PT HEALTH SUMMARY GIVEN.
--- NOTE | 2019-05-12 17:20 | NUR ---
PT STATES THAT SHE IS READY FOR DISCHARGE. DISCHARGED TO HOME WITH HER MOTHER- TO AUTO VIA W/C. STABLE
--- NOTE | 2019-05-13 08:37 | MORECARE ---
CASE MANAGEMENT DISCHARGE SUMMARY PATIENT: DIAAN MONTIEL UNIT: [id number] ADM DATE: 05/09/19 AGE: 29 : 89 SEX: F ROOM/BED: D.1218 AUTHOR: ROLANDODOC PHYSICIAN: REFERRING PHYSICIAN: GIANNA CUETO MD DATE OF SERVICE: 05/13/19 Discharge Plan Patient Name: DIANA MONTIEL Facility: [facility]:[place] : 1990 Planned Disposition: Home Anticipated Discharge Date: 05/12/19 Discharge Date: 05/12/2019 Expected LOS: 3 Initial Reviewer: [email or web address] Initial Review Date: 05/09/2019 Generated: 05/13/19 9:36 am Comments DCP- Discharge Planning Updated by [email or web address]: Vaishali Henry on 05/11/19 11:[address] Consult received from Dr. Sosa: Mom pot for amphet on delivery and had limited pnc. MOB: Diana Montiel [address], [place] [id number] [phone] FOB: Jorge Kat [address], [place] [id number] [phone] MOTHER OF BABY: CM met with GRACE and GRACE's mother, Vikki Montiel to discuss cm consult. GRACE gave permission to speak in front of her mother. GRACE does not work and plans to be home with baby at all times. She does not have a vehicle of her own and will have to depend upon FOB, her mother, and the neighbor to provide transportation for the baby to doctor visits. GRACE has 3 other children ages 2,7,9 which their paternal grandmother (her ex mother in law) has custody of them. She reports she voluntarily gave custody to her ex mother in law to get her life back in order. She did report that this was drug related as well. She reports she has smoked meth during her 2 x per week up until the past 3 months. 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 She stated on before her delivery she took Sudafed for a cold (she purchased at [employer] [place] [employer]) she had along with multiple OTC cough syrups. She reports she smokes cigarettes daily and she smoked throughout her . She smokes one pack of cigarettes every 3 days. She reports she did not seek care because she lives in [place] without transportation. She stated her mother did become available at some point in her and was able to get her to the doctor. She agreed to information on drug rehab options. Cm provided resources on drug rehabs. FATHER OF THE BABY: Jorge Kat - he works timekeeping supervisor repairing chicken houses and farm equipment. He stated this job approx. one month ago. She recently reconciled her relationship with Jorge 3 weeks ago and moved in with him. He has a truck that he drives. She reports he has to get tags, insurance, fuses, and headlights for the truck before she or the baby will ride in it. Jorge has one son that is the age of 4. He does not have custody of his son at this time. The maternal grandfather, Kian Macedo has custody of him. GRAEC reports RAHUL also smokes meth but to her knowledge he has not been using meth since she moved back in with him. HOME ENVIRONMENT: GRACE reports the home environment is safe. They have running city water, working electricity, their home is heated and cooled by electricity. She has smoke detectors in the home. CM educated her on importance of changing the batteries with the daylight savings time. DONITA educated her on nursery water and she reports she already purchased this for the baby. She verbalized understanding. There is one cat in the home. Both GRACE and RAHUL smoke cigarettes but she reports they will be smoking outside of the home and not around the baby. She has a car seat in the vehicle outside. DONITA educated her that the car seat will have to be in the room before baby can leave the hospital. She is aware of Medicaid and already has WIC. She stated she just has to make appointment to take the baby for formula. She does plans to bottle feed with formula and not breast feed the baby. She does not and has not applied for food stamps at this time but stated she will do so. She reports she has all the items for the baby, clothes, diapers, crib, bassinet and bottles. She plans to use Carolyn Allen's office as her ux architect. Home visit with CPS is scheduled for today and her mother Vikki Montiel will be doing the home visit with CPS. DC PLAN: is to return home with FOB where she plans to take care of baby. She denied further dc assistance and reports she feels she has the support she needs from the FOB, her mother, and her neighbor. Last DP export: 05/12/19 10:34 a Patient Name: DIANA MONTIEL Page [id number] at [id number] All edits/amendments must be made on the electronic document DICTATION DATE: 05/13/1937 SEALANT MIXER: SCOOTER 05/13/1937 RPT#: [id number] DC DATE:05/12/19 STATUS: DIS IN [facility] [address] [place] [address] END OF REPORT
[2019-05-14 08:11] LABS: UDSC - BARB Negative ng/mL (Cutoff=300); UDSC - BENZO Negative ng/mL (Cutoff=300); UDSC - COC Negative ng/mL (Cutoff=300); UDSC - METH Negative ng/mL (Cutoff=300); UDSC - OPIATES Negative ng/mL (Cutoff=300); UDSC - PCP Negative ng/mL (Cutoff=25); UDSC - PROPOXY Negative ng/mL (Cutoff=300); UDSC - THC Negative ng/mL (Cutoff=50)
== END 2019-05-12 17:20 | disposition home or self-care (01) | DRG 768 ==
LOC: D.LDO 18:43 → D.LD 19:31 → D.WS 05-11 23:40
PROVIDERS: ADMIT Obstetrics & Gynecology; ATTEND Obstetrics & Gynecology
PROC: 0UDB7ZZ Extraction of Endometrium, Via Natural or Artificial Opening (ICD-10-PCS; principal; 2019-05-09)
PROC: 10E0XZZ Delivery of Products of Conception, External Approach (ICD-10-PCS; 2019-05-09)
PROC: 2Y44X5Z Packing of Female Genital Tract using Packing Material (ICD-10-PCS; 2019-05-09)
DX: O99.824 Streptococcus B carrier state complicating childbirth (principal); Z37.0 Single live birth; O72.2 Delayed and secondary postpartum hemorrhage; O99.324 Drug use complicating childbirth; Z3A.38 38 weeks gestation of pregnancy; O70.0 First degree perineal laceration during delivery; O69.81X0 Labor and delivery complicated by cord around neck, without compression, not applicable or unspecified; F15.10 Other stimulant abuse, uncomplicated